=== PATIENT | female | born 1965 | race Caucasian/White ===

== ENCOUNTER 2022-05-13 00:39 | Inpatient (IN) | payer OTHER ==
--- NOTE | 2022-05-13 02:24 | ED ---
Abdominal Pain HPI - General Chief Complaint: Abdominal Pain Stated Complaint: Appendicitis Time Seen by Provider: 05/13/22 00:49 Source: patient, EMS Mode of arrival: EMS Limitations: no limitations - History of Present Illness Initial Comments: This patient is a 56-year-old woman with no previous surgical history who is transferred here from [facility]. She had gone in there to be evaluated for right lower quadrant pain that had started on but became much worse today. The patient also was having some associated diarrhea. At the other facility she had lab tests and computed tomography scan. The computed tomography scan showed dilated appendix to 1.1 cm. There was some periappendiceal inflammation but no evidence of perforation. Patient transferred here. MD Complaint: abdominal pain Onset/Timin -: days(s) Location: RLQ Migration to: no migration Severity: moderate Quality: aching Consistency: constant Improves With: nothing Worsens With: movement Associated Symptoms: diarrhea - Related Data Home Medications Medication Instructions Recorded Confirmed Albuterol Sulfate [Ventolin HFA] 2 puff INHALATION RT-QID PRN 05/13/22 05/13/22 Losartan-Hctz 50-12.5 mg [Hyzaar 1 tab PO DAILY 05/13/22 05/13/22 50-12.5] Sertraline [Zoloft] 100 mg PO DAILY 05/13/22 05/13/22 amLODIPine [Norvasc] 5 mg PO DAILY 05/13/22 05/13/22 Allergies Allergy/AdvReac Type Severity Reaction Status Date / Time No Known Allergies Allergy Verified 05/13/22 09:31 Review of Systems ROS Statement: Those systems with pertinent positive or pertinent negative responses have been documented in the HPI. ROS Other: All systems not noted in ROS Statement are negative. Constitutional: Denies: fever, chills Respiratory: Denies: cough, dyspnea Cardiovascular: Denies: chest pain, palpitations, dyspnea on exertion, edema Gastrointestinal: Reports: abdominal pain, diarrhea. Denies: vomiting, constipation, melena, hematochezia Genitourinary: Denies: dysuria, frequency, hematuria Musculoskeletal: Denies: back pain Skin: Denies: rash Neurological: Denies: headache, weakness Past Medical History - Past Family History Mother Sister(s) Family Medical History: Deep Vein Thrombosis (DVT) (Factor 5 leiden hx Mom and Sister) General Exam Limitations: no limitations General appearance: alert, in no apparent distress Head exam: Present: atraumatic, normocephalic Eye exam: Present: normal appearance. Absent: scleral icterus, conjunctival injection Neck exam: Present: normal inspection Respiratory exam: Present: normal lung sounds bilaterally. Absent: respiratory distress, wheezes, rales, rhonchi, stridor Cardiovascular Exam: Present: regular rate, normal rhythm, normal heart sounds. Absent: systolic murmur, diastolic murmur, rubs, gallop GI/Abdominal exam: Present: soft, tenderness. Absent: distended, guarding, rebound, rigid, mass, pulsatile mass Extremities exam: Present: normal inspection, normal capillary refill. Absent: pedal edema, calf tenderness Back exam: Present: normal inspection. Absent: CVA tenderness (R), CVA tenderness (L) Neurological exam: Present: alert Skin exam: Present: warm, dry, intact, normal color. Absent: rash Course Vital Signs 05/13/22 00:41 Temperature 98.1 F Pulse Rate 84 Respiratory 16 Rate Blood Pressure 148/96 O2 Sat by Pulse 98 Oximetry Medical Decision Making - Lab Data Result diagrams: 05/13/22 09:27 05/13/22 09:27 Disposition Clinical Impression: Acute appendicitis Disposition: ADMITTED IP TO THIS [facility] Condition: Good Is patient prescribed a controlled substance at d/c from ED?: No
[2022-05-13] MEDS ORDERED: MORPHINE SULFATE 4 MG/ML SYRINGE IV STA (02:25)
[2022-05-13] MEDS ORDERED: ONDANSETRON 4 MG/2 ML VIAL IVP PRN (02:46)
[2022-05-13] MEDS ORDERED: NALOXONE 0.4 MG/ML 1 ML VIAL IV PRN (02:46)
[2022-05-13] MEDS ORDERED: PIPERACILLIN-TAZOBACTAM 3.375 GM in SODIUM CHLORIDE 0.9% 100 ML IVPB STA (03:16)
[2022-05-13] MEDS: SODIUM CHLORIDE 0.9% 1,000 ML IV SCH ×2 (04:34→18:00)
[2022-05-13] MEDS: PANTOPRAZOLE 40 MG/10 ML VIAL IV SCH (07:47)
[2022-05-13] MEDS: MORPHINE SULFATE 4 MG/ML SYRINGE IV PRN ×2 (07:47→21:17)
[2022-05-13] MEDS: metroNIDAZOLE-NS PMX 500 MG in SALINE 1 100ML.BAG IVPB SCH ×3 (09:02→21:21)
[2022-05-13 09:42] LABS: Basophils # (A) 0.1 k/uL (0-0.2); Basophils % (A) 1 %; Eosinophils # (A) 0.2 k/uL (0-0.7); Eosinophils % (A) 2 %; HGB 17.4 gm/dL (11.4-16.0); Lymphocytes # (A) 1.4 k/uL (1.0-4.8); Lymphocytes % (A) 10 %; MCH 29.1 pg (25.0-35.0); MCHC 31.5 g/dL (31.0-37.0); MCV 92.4 fL (80.0-100.0); Monocytes # (A) 0.5 k/uL (0-1.0); Monocytes % (A) 3 %; Neutrophils # (A) 12.8 k/uL (1.3-7.7); Neutrophils % (A) 85 %; Platelet Count 282 k/uL (150-450); RBC 5.98 m/uL (3.80-5.40); RDW 13.6 % (11.5-15.5); WBC 15.1 k/uL (3.8-10.6)
[2022-05-13 09:46] LABS: HCT 55.2 % (34.0-46.0)
[2022-05-13 09:53] LABS: African American GFR (CKD) >90 (>60 ml/min/1.73 sqM); Anion Gap 9 mmol/L; Blood Urea Nitrogen 10 mg/dL (7-17); Calcium 8.5 mg/dL (8.4-10.2); Carbon Dioxide 24 mmol/L (22-30); Chloride 104 mmol/L (98-107); Glucose 138 mg/dL (74-99); Non-African American GFR(CKD) >90 (>60 ml/min/1.73 sqM); Potassium 3.5 mmol/L (3.5-5.1); Sodium 137 mmol/L (137-145)
[2022-05-13] MEDS ORDERED: ONDANSETRON 4 MG/2 ML VIAL IVP ONE (10:07)
[2022-05-13] MEDS ORDERED: DEXAMETHASONE SOD PHOSPHATE 4 MG/ML 1 ML VIAL IV ONE (10:07)
--- NOTE | 2022-05-13 10:38 | P.HPIM ---
History of Present Illness H&P Date: 05/13/22 Chief Complaint: abd pain 56 yo woman notes abd pain which first began 05/09/22 Seen in ER at [facility] and dx w acute appendicitis by exam and CT Past Medical History Past Medical History: Deep Vein Thrombosis (DVT), Hyperlipidemia, Hypertension Additional Past Medical History / Comment(s): HTN, COPD, depression History of Any Multi-Drug Resistant Organisms: None Reported (Tubal ligation) Past Surgical History: Tubal Ligation Past Anesthesia/Blood Transfusion Reactions: No Reported Reaction Additional Past Anesthesia/Blood Transfusion Reaction / Comment(s): Patient has never had a blood transfushion Past Psychological History: Depression Smoking Status: Current every day smoker Past Alcohol Use History: None Reported, Daily Past Drug Use History: None Reported - Past Family History Mother Sister(s) Family Medical History: Deep Vein Thrombosis (DVT) (Factor 5 leiden hx Mom and Sister) Medications and Allergies Home Medications Medication Instructions Recorded Confirmed Type Albuterol Sulfate [Ventolin HFA] 2 puff INHALATION RT-QID PRN 05/13/22 05/13/22 History Losartan-Hctz 50-12.5 mg [Hyzaar 1 tab PO DAILY 05/13/22 05/13/22 History 50-12.5] Sertraline [Zoloft] 100 mg PO DAILY 05/13/22 05/13/22 History amLODIPine [Norvasc] 5 mg PO DAILY 05/13/22 05/13/22 History Allergies Allergy/AdvReac Type Severity Reaction Status Date / Time No Known Allergies Allergy Verified 05/13/22 09:31 Physical Exam Vitals: Vital Signs Temp Pulse Pulse Resp BP BP Pulse Ox 05/13/22 08:00 98.3 F 97 16 155/98 90 L 05/13/22 04:05 98.7 F 90 16 134/85 92 L 05/13/22 00:41 98.1 F 84 16 148/96 98 Intake and Output 05/12/22 05/13/22 05/13/22 22:59 06:59 14:59 Other: # Voids 0 Weight 99.337 kg - Constitutional General appearance: obese - EENT Eyes: EOMI - Respiratory Respiratory: bilateral: rhonchi - Cardiovascular Rhythm: regular (abdomen protuberant, tender in RLQ) Results CBC & Chem 7: 05/13/22 09:27 05/13/22 09:27 Labs: Abnormal Lab Results - Last 24 Hours (Table) 05/13/22 05/13/22 Range/Units 09:27 09:27 WBC 15.1 H (3.8-10.6) k/uL RBC 5.98 H (3.80-5.40) m/uL Hgb 17.4 H (11.4-16.0) gm/dL Hct 55.2 H (34.0-46.0) % Neutrophils # 12.8 H (1.3-7.7) k/uL Glucose 138 H (74-99) mg/dL Thrombosis Risk Factor Assmnt - Choose All That Apply Each Factor Represents 1 point: Abnormal pulmonary function (COPD), Age 41-60 years, Obesity (BMI >25) Each Risk Factor Represents 3 Points: History of DVT/PE Thrombosis Risk Factor Assessment Total Risk Factor Score: 6 Thrombosis Risk Factor Assessment Level: High Risk Assessment and Plan Assessment: 56 yo woman w acute appendicitis NPO, IVF, IV abx Lap, possible open appendectomy Risks and benefits discussed w pt and spouse and they are agreeable Time with Patient: Greater than 30
[2022-05-13] MEDS: LACTATED RINGERS 1,000 ML IV SCH ×3 (10:50→21:29)
[2022-05-13] MEDS: HEPARIN SODIUM,PORCINE/PF 5,000 UNIT/0.5 ML SYRINGE SQ SCH ×3 (11:49→21:22)
[2022-05-13] MEDS ORDERED: NEOSTIGMINE 1 MG/ML 10 ML VIAL ONE (11:50)
[2022-05-13] MEDS ORDERED: LIDOCAINE 2% INJ 20 MG/ML (2 ML VIAL) ONE (11:50)
[2022-05-13] MEDS ORDERED: fentaNYL (PF) 50 MCG/ML 2 ML AMP ONE (11:50)
[2022-05-13] MEDS ORDERED: SUCCINYLCHOLINE CHLORIDE 200 MG/10 ML VIAL IV ONE (11:50)
[2022-05-13] MEDS ORDERED: ROCURONIUM 10 MG/ML (5 ML VIAL) IV ONE (11:50)
[2022-05-13] MEDS ORDERED: HYDROmorphone (PF) 1 MG/ML ONE (11:50)
[2022-05-13] MEDS ORDERED: PHENYLEPHRINE-0.9% NACL SYG 1,000 MCG/10 ML SYRINGE ONE (11:50)
[2022-05-13] MEDS ORDERED: PROPOFOL 10 MG/ML 20 ML VIAL IV ONE (11:50)
[2022-05-13] MEDS ORDERED: GLYCOPYRROLATE 0.2 MG/ML 2 ML VIAL ONE (11:50)
[2022-05-13] MEDS ORDERED: MIDAZOLAM 2 MG/2 ML VIAL ONE (11:50)
[2022-05-13] MEDS ORDERED: BUPIVACAIN-EPI 0.25%-1:200,000 30 ML VIAL SQ ONE ×2 (12:18)
[2022-05-13] MEDS ORDERED: LACTATED RINGERS 1,000 ML IV ONE (13:17)
[2022-05-13] MEDS ORDERED: HYDROcodone/APAP 5-325MG 1 EACH TAB PO PRN (13:56)
--- NOTE | 2022-05-13 14:22 | P.OP ---
Date of Procedure: 05/13/22 Preoperative Diagnosis: Acute appendicitis Postoperative Diagnosis: Acute purulent appendicitis Procedure(s) Performed: Laparoscopic appendectomy Anesthesia: BALWINDER Surgeon: iMki Hui Estimated Blood Loss (ml): 15 IV fluids (ml): 900 Urine output (ml): 75 Pathology: other Condition: stable Disposition: PACU Indications for Procedure: 56 yo woman presented to local ER with 3 days of lower abdominal pain R>L CT performed consistent with acute appendicitis Operative Findings: Appendicitis with purulent localized peritonitis Description of Procedure: Pt was brought to the OR, time broker out was taken. Pre-op antibiotics were given. Pt was placed on the table in supine position with the L arm tucked and well padded. General anesthesia and monitoring was provided per the anesthesia dept. A pre-op urinary and oral gastric tubes were placed. The abdomen was widely prepped and draped in sterile fashion. A small incision was made below the umbilicus, a Veress needle was used to establish a pneumoperitoneum. Entry was gained using a 5 mm optical trocar. Purulent exudate was noted in the RLQ. A second 5 mm trocar was placed in the lower midline, a 12 mm trocar was placed in the L lateral abd wall. Using blunt dissection some adhesions of the small bowel to the cecum were gently dissected. The appendix was identified and a small opening made at the base of the mesoappendix. The base was transected across w use of an endo DOLLY. (blue load) The mesoappendix was then carefully divided across using cautery. After approximately half the mesoappendix was divided the remaining portion was divided with use of a vascular load on the stapler. The specimen was placed in an endobag and brought out from the larger port site. The trocar was replaced and the surgical field inspected, the area was irrigated w NS and all free fluid aspirated out. The pneumoperitoneum was released and the trocars removed. The fascia at the larger trocar site was reapproximated using 0 Vicryl on a Erick-Echavarria needle. Skin was closed w 4.0 Monocryl and glue used as dressing. The patient tolerated the procedure well, was extubated in the room and brought to recovery.
[2022-05-14] MEDS: LACTATED RINGERS 1,000 ML IV SCH ×4 (01:58→17:58)
--- NOTE | 2022-05-14 02:22 | CONS ---
CONSULTATION REASON FOR CONSULTATION: Regarding DVT and other medical issues requested by Surgery. HISTORY OF PRESENT ILLNESS: This is a 56-year-old woman with a past history of DVT, hypertension, hyperlipidemia, was admitted after laparoscopic acute appendicitis. There is no history of any fever, rigor, or chills at this time. PAST MEDICAL HISTORY: History of DVT, hypertension, hyperlipidemia, reviewed. HOME MEDICATIONS: Reviewed include albuterol, doses and rest of medication noted. ALLERGIES: None. FAMILY HISTORY: History of DVT. SOCIAL HISTORY: History of smoking. No history of alcohol. REVIEW OF SYSTEMS: A 14-point review of systems is negative except as mentioned earlier. PHYSICAL EXAMINATION: VITAL SIGNS: Pulse is 91, blood pressure NTD_, respirations 16. HEENT: Conjunctivae normal. NECK: No JVD. CARDIOVASCULAR: S1, S2 muffled. RESPIRATIONS: Breath sounds diminished at the bases. A few scattered rhonchi. ABDOMEN: Soft, status post surgery. NERVOUS SYSTEM: No focal deficits. LABS: At this time, WBCN_. Rest of the labs noted. ASSESSMENT: 1. Status post laparoscopic appendectomy. 2. Possible chronic obstructive pulmonary disease. 3. Deep venous thrombosis. 4. Hyperlipidemia. 5. Multiple medical issues. RECOMMENDATIONS AND DISCUSSION: This is a 56-year-old woman, who presented with multiple medical issues. At this time, I recommend a course of bronchodilators and incentive spirometry. Otherwise, DVT prophylaxis. Resume the home medications. We will follow. Smoking cessation, smoking patch. We will follow the patient closely with you. Thank you for letting us participate in the care of this patient. MMODL / IJN: [id number] / MARZENA
[2022-05-14] MEDS: metroNIDAZOLE-NS PMX 500 MG in SALINE 1 100ML.BAG IVPB SCH ×4 (03:56→20:51)
[2022-05-14] MEDS: MORPHINE SULFATE 4 MG/ML SYRINGE IV PRN ×2 (03:56→22:31)
[2022-05-14] MEDS ORDERED: HYDROmorphone 0.5 MG/0.5 ML SYRINGE IVP PRN (07:00)
[2022-05-14 07:38] VITALS: RESP 16
[2022-05-14] MEDS: PANTOPRAZOLE 40 MG/10 ML VIAL IV SCH (08:22)
[2022-05-14] MEDS: HEPARIN SODIUM,PORCINE/PF 5,000 UNIT/0.5 ML SYRINGE SQ SCH ×4 (08:22→22:32)
[2022-05-14 08:54] LABS: HCT 51.2 % (37.2-46.3); HGB 16.4 g/dL (12.0-15.0); MCH 29.5 pg (27.0-32.0); MCV 92.1 fL (80.0-97.0); Mean Platelet Volume 10.2 fL (9.5-12.2); NRBC Per 100 WBC 0 /100 WBCS (0.0-0.0); Platelet Count 310 X 10*3/uL (140-440); RBC 5.56 X 10*6/uL (4.10-5.20); RDW 14.1 % (11.5-14.5); WBC 15.37 X 10*3/uL (4.50-10.00)
[2022-05-14 09:10] LABS: Anion Gap 11.8 mmol/L (10.00-18.00); Carbon Dioxide 25.2 mmol/L (20.0-27.5); Potassium 4.1 mmol/L (3.5-5.5)
[2022-05-14] MEDS: LEVOFLOXACIN 500MG-D5W PMX 500 MG in DEXTROSE/WATER 1 100ML.BAG IVPB SCH (11:15)
[2022-05-14] MEDS ORDERED: ALBUTEROL NEBULIZED 2.5 MG/3 ML INHALATION PRN (13:07)
[2022-05-14] MEDS: SERTRALINE 100 MG TAB PO SCH (13:28)
[2022-05-14] MEDS: amLODIPine 5 MG TAB PO SCH (13:28)
--- NOTE | 2022-05-14 18:40 | P.PN ---
Subjective Progress Note Date: 05/14/22 Principal diagnosis: Status post laparoscopic appendectomy Patient is postop day 1 laparoscopic appendectomy for acute appendicitis. She's had some hypoxemia prior to admission. No real shortness of breath. The patient's hungry. Has been passing flatus. Mild pain Objective - Vital Signs Vital signs: Vital Signs Temp 98.0 F 05/14/22 14:00 Pulse 65 05/14/22 14:00 Resp 16 05/14/22 14:00 BP 142/89 05/14/22 14:00 Pulse Ox 92 L 05/14/22 14:00 FiO2 Intake & Output 05/13/22 05/14/22 05/14/22 18:59 06:59 18:59 Intake Total 1300 Output Total 85 Balance 1215 Intake: IV 1300 Output: Urine 75 Estimated Blood Loss 10 Other: # Voids 2 3 3 - Constitutional General appearance: Present: cooperative, no acute distress - Gastrointestinal General gastrointestinal: Present: decreased bowel sounds, distended (Mildly) - Labs CBC & Chem 7: 05/14/22 05:38 05/14/22 05:38 Labs: Abnormal Lab Results - Last 24 Hours (Table) 05/14/22 Range/Units 05:38 WBC 15.37 H (4.50-10.00) X 10*3/uL RBC 5.56 H (4.10-5.20) X 10*6/uL Hgb 16.4 H (12.0-15.0) g/dL Hct 51.2 H (37.2-46.3) % Microbiology - Last 24 Hours (Table) 05/13/22 13:19 Gram Stain - Preliminary Appendix Wound Culture - Preliminary 05/13/22 13:19 Anaerobic Culture - Preliminary Appendix Assessment and Plan (1) Hypoxemia Current Visit: Yes Status: Acute Code(s): R09.02 - HYPOXEMIA SNOMED Code(s): 334237281 (2) Acute appendicitis Current Visit: Yes Status: Acute Code(s): K35.80 - UNSPECIFIED ACUTE APPENDICITIS SNOMED Code(s): 65000186 Plan: Pulse oximetry is low 90s on room air. Encourage incentive spirometry. There was a lot of inflammatory fluid at the time of surgery so we'll continue IV antibiotics at this time. Progressing slowly.
[2022-05-15] MEDS: LACTATED RINGERS 1,000 ML IV SCH ×4 (04:44→15:34)
[2022-05-15] MEDS: metroNIDAZOLE-NS PMX 500 MG in SALINE 1 100ML.BAG IVPB SCH ×3 (04:49→15:23)
--- NOTE | 2022-05-15 04:59 | PN ---
PROGRESS NOTE SUBJECTIVE: This is a 56-year-old woman who was admitted after laparoscopic appendectomy is being closely monitored. No chest pain. No palpitations. No fever. PHYSICAL EXAMINATION: VITAL SIGNS: Pulse 83, blood pressure 140/85, respirations 17. HEENT: Conjunctivae normal. NECK: No JVD. CARDIOVASCULAR: Breath sounds diminished at the bases. Scattered rhonchi. ABDOMEN: Soft, status post surgery. NERVOUS SYSTEM: No focal deficits. LABS: WBC 15.6. ASSESSMENT: 1. Status post laparoscopic appendectomy. 2. Increased WBC. 3. Chronic obstructive pulmonary disease. 4. Deep venous thrombosis. 5. Hyperlipidemia. 6. Multiple medical issues. RECOMMENDATIONS AND DISCUSSION: I recommend to continue current medications, antibiotics. Incentive spirometry. Otherwise, rest of the recommendations per Surgery. Further recommendation to follow. MMODL / IJN: [id number] /
[2022-05-15] MEDS ORDERED: LOSARTAN-HCTZ 50-12.5 MG 1 EACH TAB PO SCH (09:00)
[2022-05-15] MEDS: PANTOPRAZOLE 40 MG/10 ML VIAL IV SCH (09:37)
[2022-05-15] MEDS: SERTRALINE 100 MG TAB PO SCH (09:37)
[2022-05-15] MEDS: HEPARIN SODIUM,PORCINE/PF 5,000 UNIT/0.5 ML SYRINGE SQ SCH ×2 (09:39→15:24)
[2022-05-15] MEDS: amLODIPine 5 MG TAB PO SCH (09:40)
--- NOTE | 2022-05-15 09:48 | XR ---
EXAMINATION TYPE: XR chest 1V portable DATE OF EXAM: 05/15/2022 COMPARISON: NONE HISTORY: SOB TECHNIQUE: Single frontal view of the chest is obtained. FINDINGS: There is no focal air space opacity, pleural effusion, or pneumothorax seen. The cardiac silhouette size is within normal limits. The osseous structures are intact. Hypertrophic and degene rative changes in the spine. Arthropathy of the AC joints. Ectasia of the aorta. Subsegmental changes at the right lung base with pleural thickening or tiny effusion. Underlying COPD noted. IMPRESSION: 1. COPD with right lower lobe atelectasis or early infiltrate and tiny effusion.
[2022-05-15 10:12] LABS: Basophils # (A) 0.1 k/uL (0-0.2); Basophils % (A) 1 %; Eosinophils # (A) 0.4 k/uL (0-0.7); Eosinophils % (A) 4 %; HCT 51.9 % (34.0-46.0); HGB 16.4 gm/dL (11.4-16.0); Lymphocytes # (A) 1.5 k/uL (1.0-4.8); Lymphocytes % (A) 14 %; MCH 29.6 pg (25.0-35.0); MCHC 31.5 g/dL (31.0-37.0); MCV 93.9 fL (80.0-100.0); Mean Platelet Volume 7.8; Monocytes # (A) 0.4 k/uL (0-1.0); Monocytes % (A) 3 %; Neutrophils # (A) 8.8 k/uL (1.3-7.7); Neutrophils % (A) 78 %; Platelet Count 356 k/uL (150-450); RBC 5.53 m/uL (3.80-5.40); RDW 13.4 % (11.5-15.5); WBC 11.2 k/uL (3.8-10.6)
[2022-05-15] MEDS: LEVOFLOXACIN 500MG-D5W PMX 500 MG in DEXTROSE/WATER 1 100ML.BAG IVPB SCH (11:56)
[2022-05-15 12:15] VITALS: BP 146/92; PULSE 92; TEMP 97.7
--- NOTE | 2022-05-15 14:10 | P.PN ---
Subjective Progress Note Date: 05/15/22 This is a pleasant 56-year-old female who was recently admitted under surgical services and is status post laparoscopic appendectomy and is being closely monitored. Patient is maintained on IV antibiotics and white blood count is trending down and is currently 11.2 today. Patient is afebrile denies chest pain or shortness of breath. Oxygen saturations of 90% and will obtain a chest x-ray. Encouraged incentive spirometer use at least 10 times every hour while awake and encouraged increased activity as tolerated. Patient denies nausea or vomiting and is tolerating diet. Patient does have history of COPD and does have albuterol as needed. Patient is hoping for discharge home today. Would recommend continuing antibiotics on discharge and also follow-up with primary care provider and repeat labs. Review of systems: Constitutional: No reports of fatigue, fever, or chills Cardiovascular: No reports of chest pain or palpitations Respiratory: No reports of shortness of breath or cough GI: No reports of nausea, no reports of of vomiting, patient reports passing gas : No reports of dysuria or retention Neurovascular: no reports of generalized weakness All medications have been reviewed Active Medications Hydrocodone Bitart/Acetaminophen (Hydrocodone/Apap 5-325mg 1 Each Tab) 1 each PO Q4HR PRN PRN Reason: Pain Albuterol Sulfate (Albuterol Nebulized 2.5 Mg/3 Ml) 2.5 mg INHALATION RT-QID PRN PRN Reason: Shortness Of Breath Amlodipine Besylate (Amlodipine 5 Mg Tab) 5 mg PO DAILY [facility] Last Admin: 05/15/22 09:40 Dose: 5 mg HCTZ/Losartan Potassium (Losartan-Hctz 50-12.5 Mg 1 Each Tab) 1 each PO DAILY MAY Last Admin: 05/15/22 09:43 Dose: 1 each Heparin Sodium (Porcine) (Heparin Sodium,Porcine/Pf 5,000 Unit/0.5 Ml Syringe) 5,000 unit SQ Q8HR MAY Last Admin: 05/15/22 09:39 Dose: 5,000 unit Ceftriaxone Sodium 1 gm/ (Sodium Chloride) 50 mls @ 100 mls/hr IVPB Q12HR [facility]; Protocol Stop: 05/16/22 09:01 Last Admin: 05/15/22 09:42 Dose: 100 mls/hr Metronidazole 500 mg/ IV (Solution) 100 mls @ 100 mls/hr IVPB Q6H [facility]; Protocol Last Admin: 05/15/22 09:41 Dose: 100 mls/hr Lactated Ringer's (Lactated Ringers) 1,000 mls @ 125 mls/hr IV .Q8H [facility] Last Admin: 05/15/22 11:03 Dose: Not Given Lactated Ringer's (Lactated Ringers) 1,000 mls @ 20 mls/hr IV .Q24H [facility] Last Admin: 05/15/22 11:03 Dose: Not Given Levofloxacin 500 mg/ IV (Solution) 100 mls @ 100 mls/hr IVPB Q24H [facility]; Protocol Last Admin: 05/15/22 11:56 Dose: 100 mls/hr Morphine Sulfate (Morphine Sulfate 4 Mg/Ml Syringe) 4 mg IV Q4HR PRN PRN Reason: Severe Pain (Scale 7 to 10) Last Admin: 05/14/22 22:31 Dose: 4 mg Naloxone HCl (Naloxone 0.4 Mg/Ml 1 Ml Vial) 0.2 mg IV Q2M PRN PRN Reason: Opioid Reversal Ondansetron HCl (Ondansetron 4 Mg/2 Ml Vial) 4 mg IVP Q8HR PRN PRN Reason: Nausea And Vomiting Pantoprazole Sodium (Pantoprazole 40 Mg/10 Ml Vial) 40 mg IV DAILY [facility] Last Admin: 05/15/22 09:37 Dose: 40 mg Sertraline HCl (Sertraline 100 Mg Tab) 100 mg PO DAILY [facility] Last Admin: 05/15/22 09:37 Dose: 100 mg PHYSICAL EXAMINATION: GENERAL: The patient is alert and oriented x4, Well developed, well nourished. HEENT: Pupils are round and equally reacting to light. EOMI. no scleral icterus. No conjunctival pallor. Normocephalic, atraumatic. No pharyngeal erythema. No thyromegaly. CARDIOVASCULAR: S1 and S2 muffled PULMONARY: diminished breath sounds bilaterally with no wheezing or rhonchi noted. ABDOMEN: soft. Nontender on exam. obese. Mildly distended, normoactive bowel sounds. No palpable organomegaly. MUSCULOSKELETAL: No joint swelling or deformity. EXTREMITIES: No cyanosis, clubbing, or pedal edema. NEUROLOGICAL: Gross neurological examination did not reveal any focal deficits. SKIN: No rashes. Assessment: Status post laparoscopic appendectomy Increased WBC, trending down Chronic obstructive pulmonary disease Deep vein thrombosis hyperlipidemia multiple medical issues GI prophylaxis DVT prophylaxis Full code Plan: Recommend to continue with current medications and management per general surger y services. Patient is continued on IV antibiotics in the form of ceftriaxone Levaquin and Flagyl and will continue and recommend oral antibiotics on discharge to complete the course Patient reports she is passing gas and tolerating diet with no reports of bowel movement as of yet. Encouraged increased activity as tolerated Encouraged incentive spirometer use at least 10 times every hour while awake Labs reviewed and WBC is trending down and is 11.2 today Patient is extremely anxious to go home and awaiting surgical clearance for discharge Chest x-ray ordered today for oxygen saturation of 90-91% on room air showing some atelectasis and again encouraged incentive spirometer use Due to multiple complex medical issues, prognosis is guarded We will continue to follow along closely with surgery during hospitalization. Thank you for this consultation. The impression and plan of care has been dictated by Becca Stephenson, nurse practitioner as directed. Dr. Kelechi MUHAMMAD I have performed a history and examination and MDM of this patient, discussed the same with the dictator, and agree with the dictator's assessment and plan as written ,documented as a scribe. Based on total visit time, I have performed more than 50% of the visit. Any additional findings or plans will be noted. Objective - Vital Signs Vital signs: Vital Signs Temp 97.7 F 05/15/22 12:13 Pulse 92 05/15/22 12:13 Resp 16 05/15/22 12:13 BP 146/92 05/15/22 12:13 Pulse Ox 91 L 05/15/22 02:00 FiO2 Intake & Output 05/14/22 05/15/22 05/15/22 18:59 06:59 18:59 Intake Total 240 Balance 240 Intake: Oral 240 Other: # Voids 3 3 - Labs CBC & Chem 7: 05/15/22 09:59 05/14/22 05:38 Labs: Abnormal Lab Results - Last 24 Hours (Table) 05/15/22 Range/Units 09:59 WBC 11.2 H (3.8-10.6) k/uL RBC 5.53 H (3.80-5.40) m/uL Hgb 16.4 H (11.4-16.0) gm/dL Hct 51.9 H (34.0-46.0) % Neutrophils # 8.8 H (1.3-7.7) k/uL Microbiology - Last 24 Hours (Table) 05/13/22 13:19 Gram Stain - Final Appendix Wound Culture - Final Alpha Hemolytic Streptococcus
--- NOTE | 2022-05-15 19:17 | P.DS ---
Providers Date of admission: 05/15/22 09:25 Expected date of discharge: 05/15/22 Attending physician: Miki Hui MD Consults: 05/13/22 14:03 Consult Physician Routine Consulting Provider: Jason Nassar Consult Reason/Comments: post-op medical care hx HTN, COPD Do you want consulting provider notified?: Yes Primary care physician: Stated None - Discharge Diagnosis(es) (1) Hypoxemia Current Visit: Yes Status: Acute (2) Acute appendicitis Current Visit: Yes Status: Acute Hospital Course: Patient was brought to the hospital with diagnosis of appendicitis. Dr. Hui took her to the OR and she underwent laparoscopic appendectomy. Postoperatively she progressed fairly quickly. She did have hypoxemia on the low flow nasal cannula and room air. The patient's that she is been told that her oxygen level was low recently by her primary care doctor. By postoperative day 2 she was doing well and felt to be stable for discharge on oral antibiotics. Also to continue the incentive spirometry and follow-up with her primary care doctor for lab Patient Condition at Discharge: Good Plan - Discharge Summary Discharge Rx Participant: Yes New Discharge Prescriptions: New Budesonide-Formot 160-4.5 Mcg [Symbicort 160-4.5 Mcg Inhaler] 2 puff INHALATION BID 30 Days #10.2 gm metroNIDAZOLE [Flagyl] 500 mg PO TID 7 Days #21 tab Levofloxacin [Levaquin] 500 mg PO DAILY 5 Days #5 tab Pantoprazole Sodium [Protonix] 40 mg PO DAILY #30 tab Continue Sertraline [Zoloft] 100 mg PO DAILY Losartan-Hctz 50-12.5 mg [Hyzaar 50-12.5] 1 tab PO DAILY amLODIPine [Norvasc] 5 mg PO DAILY Changed Albuterol Sulfate [Ventolin HFA] 2 puff INHALATION RT-QID #1 each Discharge Medication List Losartan-Hctz 50-12.5 mg [Hyzaar 50-12.5] 1 tab PO DAILY 05/13/22 [History] Sertraline [Zoloft] 100 mg PO DAILY 05/13/22 [History] amLODIPine [Norvasc] 5 mg PO DAILY 05/13/22 [History] Albuterol Sulfate [Ventolin HFA] 2 puff INHALATION RT-QID #1 each 05/15/22 [Rx] Budesonide-Formot 160-4.5 Mcg [Symbicort 160-4.5 Mcg Inhaler] 2 puff INHALATION BID 30 Days #10.2 gm 05/15/22 [Rx] Levofloxacin [Levaquin] 500 mg PO DAILY 5 Days #5 tab 05/15/22 [Rx] Pantoprazole Sodium [Protonix] 40 mg PO DAILY #30 tab 05/15/22 [Rx] metroNIDAZOLE [Flagyl] 500 mg PO TID 7 Days #21 tab 05/15/22 [Rx] Follow up Appointment(s)/Referral(s): None,Stated [Primary Care Provider] - 1-2 days Ashley Jasso DO [Doctor of Osteopathic Medicine] - 1 Week Ambulatory/Diagnostic Orders: Complete Blood Count w/diff [LAB.AMB] Time Frame: 3 Days, Location: None Selected Activity/Diet/Wound Care/Special Instructions: You may shower, no tub bath Diet as tolerated If you develop fever, chills, nausea or vomiting, recurrent abdominal pain go to the ER Activity Limited until follow-up Continue taking medications as prescribed Continue using incentive spirometer at least 10 times every hour while awake Continue with antibiotics until finished Follow-up with surgery outpatient Follow-up with primary care provider on discharge Recommend repeat CBC, CMP in the next 2-3 days Discharge Disposition: HOME SELF-CARE
== END 2022-05-15 20:04 | disposition home or self-care (01) | DRG 343 ==
LOC: EC 00:39 → 4SSUR 03:02 → OBSVTOIN 05-15 09:25
PROVIDERS: ADMIT Surgery; ATTEND Surgery
PROC: 0DTJ4ZZ Resection of Appendix, Percutaneous Endoscopic Approach (ICD-10-PCS; principal; 2022-05-13 09:45)
DX: K35.30 Acute appendicitis with localized peritonitis, without perforation or gangrene (principal); R09.02 Hypoxemia; E78.5 Hyperlipidemia, unspecified; F32.A Depression, unspecified; I10 Essential (primary) hypertension; F17.200 Nicotine dependence, unspecified, uncomplicated; J44.9 Chronic obstructive pulmonary disease, unspecified; E66.9 Obesity, unspecified; Z68.37 Body mass index [BMI] 37.0-37.9, adult; Z79.899 Other long term (current) drug therapy; Z86.718 Personal history of other venous thrombosis and embolism; Z71.6 Tobacco abuse counseling
CPT/HCPCS: 71045; 80048; 80051; 85025; 85027; 87070; 87075; 87205; 88304; 96374; 99285